=== PATIENT | male | born 1955 | race Caucasian/White ===

== ENCOUNTER 2016-09-04 13:58 | Emergency (ER) | payer BC ==
[2016-09-04 14:13] VITALS: BP 126/61
--- NOTE | 2016-09-04 14:25 | UC ---
General HPI - HPI Summary HPI Summary: TWO DAYS AGO FOUND TICK ON UPPER BACK. RED AREA SURROUNDING TICK BITE. 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 NO FEVER. NO JOINT ACHES. NO HX OF LYME DZ. - History of Current Complaint Chief Complaint: UCSkin Stated Complaint: TICK Time Seen by Provider: 09/04/16 14:12 Hx Obtained From: Patient Onset/Duration: Sudden Onset, Lasting Hours, Resolved Onset Severity: Mild Current Severity: None Associated Signs & Symptoms: Negative: Abdominal Pain, Back Pain, Confusion, Cough, Dizziness, Fever, Immunocompromised, Nausea, SOB, Vomiting, Weakness - Allergy/Home Medications Allergies/Adverse Reactions: Allergies Allergy/AdvReac Type Severity Reaction Status Date / Time No Known Allergies Allergy Verified 09/04/16 14:05 Home Medications: Home Medications Aspirin EC Low Dose* [Ecotrin EC Low Dose 81 MG*] 81 mg PO DAILY 09/04/16 [ History Confirmed 09/04/16] Atorvastatin* [Lipitor*] 40 mg PO DAILY 09/04/16 [History Confirmed 09/04/16] FLUoxetine CAP* [PROzac CAP*] 40 mg PO DAILY 09/04/16 [History Confirmed ] Levothyroxine TAB* [Synthroid TAB*] 125 mcg PO DAILY 09/04/16 [History Confirmed 09/04/16] Metoprolol Succinate XL TAB* [Toprol XL TAB*] 25 mg PO DAILY 09/04/16 [History Confirmed 09/04/16] Ramipril CAP* [Altace CAP*] 10 mg PO DAILY 09/04/16 [History Confirmed 09/04/16] PMH/Surg Hx/FS Hx/Imm Hx Previously Healthy: Yes Endocrine History Of: Reports: Thyroid Disease Cardiovascular History Of: Reports: Hypertension - Surgical History Surgical History: None - Family History Known Family History: Positive: Cardiac Disease - GRAND MOTHER [place] Negative: Respiratory Disease - Social History Occupation: Employed Full-time Lives: With Family Alcohol Use: Daily Alcohol Amount: 2 glasses of wine daily Substance Use Type: None Smoking Status (MU): Never Smoked Tobacco Review of Systems Constitutional: Negative Skin: Rash - RED AREA AROUND TICK BITE LEFT UPPER BACK Eyes: Negative ENT: Negative Respiratory: Negative Cardiovascular: Negative Gastrointestinal: Negative Genitourinary: Negative Motor: Negative Neurovascular: Negative Musculoskeletal: Negative Neurological: Negative Psychological: Negative All Other Systems Reviewed And Are Negative: Yes Physical Exam Triage Information Reviewed: Yes Appearance: Well-Appearing, No Pain Distress, Well-Nourished Vital Signs: Initial Vital Signs Temp 98.9 F 09/04/16 14:07 Pulse 63 09/04/16 14:07 Resp 16 09/04/16 14:07 BP 126/61 09/04/16 14:07 Pulse Ox 99 09/04/16 14:07 Vital Signs Reviewed: Yes Eye Exam: Normal ENT Exam: Normal ENT: Positive: Normal ENT inspection, Hearing grossly normal, Pharynx normal, TMs normal Dental Exam: Normal Neck exam: Normal Neck: Positive: Supple Respiratory Exam: Normal Respiratory: Positive: Chest non-tender, Lungs clear, Normal breath sounds, No respiratory distress Cardiovascular Exam: Normal Cardiovascular: Positive: RRR, No Murmur Abdominal Exam: Normal Musculoskeletal Exam: Normal Neurological Exam: Normal Psychological Exam: Normal Skin: Positive: Other - 1CM X 1CM ERRETHEMAOUS AREA LEFT UPPER BACK Course/Dx - Differential Dx - Multi-Symptom Differential Diagnoses: Metabolic Abnormality Provider Diagnoses: TICK BITE PROPHYLAXIS Discharge - Discharge Plan Condition: Stable Disposition: HOME Prescriptions: DOXYcycline CAP(*) [DOXYcycline 100MG CAP(*)] 200 mg PO ONCE #2 cap Patient Education Materials: Tick Bite (ED) Images Front/Back of Body, Lg ([place]cher): 1 - 1CM X 1CM ERRYTHEMATOUS AREA S/P TICK REMOVAL HERE
== END 2016-09-04 14:33 | disposition home or self-care (01) ==
LOC: UCCORT 13:58
DX: S20.462A Insect bite (nonvenomous) of left back wall of thorax, initial encounter (principal); W57.XXXA Bitten or stung by nonvenomous insect and other nonvenomous arthropods, initial encounter; Y93.9 Activity, unspecified; Y92.9 Unspecified place or not applicable; E07.9 Disorder of thyroid, unspecified; I10 Essential (primary) hypertension
CPT/HCPCS: 99202; G0463